=== PATIENT | male | born 1995 | race Caucasian/White ===

== ENCOUNTER 2016-11-11 12:56 | Inpatient (IN) | payer MEDICAID ==
[~2016-11-11] VITALS: Ht 185.4 cm; Wt 61.8 kg
[~2016-11-11 12:56] MED LIST: BUSP5TAB20 PO; DIVA500T52 PO; QUET200T PO
[2016-11-11 14:21] VITALS: BP 138/68
[2016-11-11] MEDS ORDERED: ZOLPIDEM TARTRATE 10 MG TABLET PO PRN (14:30)
[2016-11-11] MEDS ORDERED: LORazepam 2 MG TABLET PO PRN (14:30)
[2016-11-11 16:42] VITALS: BP 137/61
[2016-11-11] MEDS: BusPIRone HCL 5 MG TABLET PO SCH (20:03)
[2016-11-11] MEDS: QUEtiapine FUMARATE 200 MG TABLET PO SCH (20:04)
[2016-11-11] MEDS: DIVALPROEX SODIUM 500 MG ER TABLET PO SCH (20:04)
[2016-11-12 06:33] VITALS: BP 123/66
[2016-11-12] MEDS: QUEtiapine FUMARATE 200 MG TABLET PO SCH ×2 (08:25→20:32)
[2016-11-12] MEDS: DIVALPROEX SODIUM 500 MG ER TABLET PO SCH ×2 (08:25→20:33)
[2016-11-12] MEDS: BusPIRone HCL 5 MG TABLET PO SCH ×2 (08:25→20:32)
[2016-11-12 08:56] VITALS: BP 108/67
[2016-11-12 16:41] VITALS: BP 110/82
[2016-11-13 06:04] VITALS: BP 109/66
[2016-11-13 08:23] VITALS: BP 129/79
[2016-11-13] MEDS: BusPIRone HCL 5 MG TABLET PO SCH (08:57)
[2016-11-13] MEDS: QUEtiapine FUMARATE 200 MG TABLET PO SCH (08:57)
[2016-11-13] MEDS: DIVALPROEX SODIUM 500 MG ER TABLET PO SCH (08:57)
[2016-11-13] MEDS ORDERED: NICOTINE 21 MG/24 HOUR PATCH TD SCH (09:00)
== END 2016-11-13 13:30 | disposition home or self-care (01) | DRG 750 ==
LOC: B2S 14:35 → EDSTATUS 14:43
DX: F25.1 Schizoaffective disorder, depressive type (principal); R45.851 Suicidal ideations; F12.90 Cannabis use, unspecified, uncomplicated; F14.90 Cocaine use, unspecified, uncomplicated; F41.9 Anxiety disorder, unspecified; F17.200 Nicotine dependence, unspecified, uncomplicated; Z91.040 Latex allergy status; Z79.899 Other long term (current) drug therapy; Z87.898 Personal history of other specified conditions; Z71.51 Drug abuse counseling and surveillance of drug abuser
CPT/HCPCS: 87081

== ENCOUNTER 2017-03-14 19:57 | Inpatient (IN) | payer MEDICAID, OTHER ==
[~2017-03-14] VITALS: Ht 182.9 cm; Wt 64.7 kg
[2017-03-14 20:28] LABS: HEMATOCRIT 45.2 % (41-53); MEAN CORPUSCULAR HEMOGLOBIN 28.3 pg (26.0-34.0); MEAN CORPUSCULAR HGB CONC 33.2 G/dL (31.0-37.0); MEAN CORPUSCULAR VOLUME 85 fL (80-100); RED BLOOD CELL COUNT(AUTO) 5.29 MIL/uL (4.50-5.90); RED CELL DISTRIBUTION WIDTH 16.7 % (11.5-14.5)
[2017-03-14 20:29] LABS: BASOPHILS % (AUTO) 0.1 % (0.0-2.0); EOSINOPHILS % (AUTO) 2.7 % (1.0-6.0); LYMPHOCYTES # (AUTO) 2.2 K/uL (1.0-4.8); LYMPHOCYTES % (AUTO) 23.6 % (22.0-44.0); MONOCYTES % (AUTO) 10.6 % (2.0-9.0); NEUTROPHILS # (AUTO) 5.9 K/uL (1.8-7.7); PLATELET COUNT (AUTO) 293 K/uL (150-450)
[2017-03-14 20:38] LABS: AMPHET/METH SCREEN,URINE NEGATIVE (NEGATIVE); BARBITURATE SCREEN, URINE NEGATIVE (NEGATIVE); BENZODIAZEPINES SCREEN,URINE NEGATIVE (NEGATIVE); CANNABINOID SCREEN,URINE POSITIVE (NEGATIVE); COCAINE SCREEN,URINE NEGATIVE (NEGATIVE); METHADONE SCREEN, URINE NEGATIVE (NEGATIVE); OPIATE SCREEN,URINE NEGATIVE (NEGATIVE)
[2017-03-14 20:42] LABS: PHENCYCLIDINE SCREEN,URINE NEGATIVE (NEGATIVE)
[2017-03-14 20:44] LABS: ANION GAP 6 mmol/L (8-16); CALCIUM, TOTAL 8.9 mg/dL (8.8-10.5); CARBON DIOXIDE 29 mmol/L (22-29); CHLORIDE 102 mmol/L (98-107); CREATININE 0.98 mg/dL (0.60-1.30); GLOMERULAR FILTR. RATE CALC > 60 mL/min (>60); GLUCOSE,RANDOM 78 mg/dL (70-110); POTASSIUM 4.4 mmol/L (3.5-5.1); SODIUM SERUM 137 mmol/L (136-145); UREA NITROGEN, BLOOD 24 mg/dL (7-18)
[2017-03-14 20:50] LABS: ALANINE AMINOTRANSFERASE 23 U/L (12-78); ALBUMIN 3.7 g/dL (3.4-5.0); ALKALINE PHOSPHATASE 76 U/L (46-116); ASPARTATE AMINOTRANSFERASE 27 U/L (15-37); BILIRUBIN,TOTAL 0.4 mg/dL (0.1-1.0); TOTAL PROTEIN, SERUM 7.3 g/dL (6.4-8.2)
[2017-03-14] MEDS ORDERED: ACETAMINOPHEN 500 MG TABLET PO ONE (22:00)
[2017-03-14] MEDS ORDERED: LORazepam 2 MG TABLET PO ONE (22:30)
[2017-03-15] MEDS ORDERED: HALOPERIDOL 5 MG TABLET PO PRN (08:15)
[2017-03-15] MEDS ORDERED: LORazepam 2 MG TABLET PO PRN (08:15)
[2017-03-15] MEDS ORDERED: ZOLPIDEM TARTRATE 10 MG TABLET PO PRN (08:15)
[2017-03-15 09:28] VITALS: BP 118/77
[2017-03-15] MEDS ORDERED: INFLUENZA VIRUS VACCINE QVS 2017-18 (3YR+)/PF 60 MCG/0.5 ML SYRINGE IM ONE (10:00)
[2017-03-15] MEDS ORDERED: IBUPROFEN 400 MG TABLET PO PRN (19:45)
[2017-03-15] MEDS ORDERED: ACETAMINOPHEN 325 MG TABLET PO PRN (19:45)
[2017-03-15 20:05] VITALS: BP 119/65
[2017-03-15] MEDS ORDERED: MIRTAZAPINE 15 MG TABLET PO SCH (21:00)
[2017-03-16 01:35] VITALS: BP 98/57
[2017-03-16 08:14] LABS: CHOL/HDL RATIO 3.6 (4.2-7.3)
[2017-03-16] MEDS: ARIPiprazole 5 MG TABLET PO SCH (09:05)
[2017-03-16 10:33] VITALS: BP 113/69
[2017-03-16 16:00] VITALS: BP 127/68
[2017-03-16] MEDS: MIRTAZAPINE 30 MG TABLET PO SCH (21:08)
[2017-03-17 06:20] VITALS: BP 103/80
[2017-03-17] MEDS: ARIPiprazole 5 MG TABLET PO SCH (08:55)
[2017-03-17 09:01] VITALS: BP 110/58
[2017-03-17 16:00] VITALS: BP 119/63
[2017-03-17] MEDS: MIRTAZAPINE 30 MG TABLET PO SCH (20:26)
[2017-03-18 06:50] VITALS: BP 109/59
[2017-03-18 09:14] VITALS: BP 119/69
[2017-03-18] MEDS: ARIPiprazole 5 MG TABLET PO SCH (09:48)
[2017-03-18 16:36] VITALS: BP 119/82
[2017-03-18] MEDS ORDERED: MIRTAZAPINE 30 MG TABLET PO SCH (21:00)
[2017-03-19 06:54] VITALS: BP 108/65
[2017-03-19] MEDS: ARIPiprazole 5 MG TABLET PO SCH (09:08)
[2017-03-19 09:36] VITALS: BP 114/68
[2017-03-19] MEDS ORDERED: MIRT15 PO (13:12)
[2017-03-19] MEDS ORDERED: ARIP5TAB8 PO (13:12)
== END 2017-03-19 13:55 | disposition home or self-care (01) | DRG 751 ==
LOC: EMS 19:58 → AHU 03-15 08:01 → B2S 03-15 21:50
PROVIDERS: ADMIT Psychiatry & Neurology Child & Adolescent Psychiatry; ATTEND Psychiatry & Neurology Psychiatry
PROC: 3E0234Z Introduction of Serum, Toxoid and Vaccine into Muscle, Percutaneous Approach (ICD-10-PCS; principal; 2017-03-15)
DX: F33.2 Major depressive disorder, recurrent severe without psychotic features (principal); R45.851 Suicidal ideations; F15.20 Other stimulant dependence, uncomplicated; F12.90 Cannabis use, unspecified, uncomplicated; F14.90 Cocaine use, unspecified, uncomplicated; F90.9 Attention-deficit hyperactivity disorder, unspecified type; F17.210 Nicotine dependence, cigarettes, uncomplicated; F60.3 Borderline personality disorder; L70.0 Acne vulgaris; R79.89 Other specified abnormal findings of blood chemistry; Z59.0 Homelessness; Z91.040 Latex allergy status; Z79.899 Other long term (current) drug therapy; Z23 Encounter for immunization
CPT/HCPCS: 90471; 99285; G0480

== ENCOUNTER 2017-04-24 08:20 | Inpatient (IN) | payer MEDICAID, OTHER ==
[~2017-04-24] VITALS: Ht 185.4 cm; Wt 64.2 kg
[~2017-04-24 08:20] MED LIST changes: +ARIP5TAB8 PO; -BUSP5TAB20 PO; -DIVA500T52 PO; +MIRT15 PO; -QUET200T PO
[2017-04-24 09:18] LABS: BASOPHILS % (AUTO) 0.7 % (0.0-2.0); EOSINOPHILS % (AUTO) 1.3 % (1.0-6.0); HEMATOCRIT 44.9 % (41-53); HEMOGLOBIN 14.9 g/dL (13.5-17.5); LYMPHOCYTES # (AUTO) 1.4 K/uL (1.0-4.8); LYMPHOCYTES % (AUTO) 11.7 % (22.0-44.0); MEAN CORPUSCULAR HEMOGLOBIN 27.5 pg (26.0-34.0); MEAN CORPUSCULAR HGB CONC 33.3 G/dL (31.0-37.0); MEAN CORPUSCULAR VOLUME 83 fL (80-100); MONOCYTES # (AUTO) 1.1 K/uL (0.1-1.0); MONOCYTES % (AUTO) 9.3 % (2.0-9.0); NEUTROPHILS # (AUTO) 8.9 K/uL (1.8-7.7); PLATELET COUNT (AUTO) 240 K/uL (150-450); RED BLOOD CELL COUNT(AUTO) 5.43 MIL/uL (4.50-5.90); RED CELL DISTRIBUTION WIDTH 16.5 % (11.5-14.5)
[2017-04-24 09:33] LABS: ANION GAP 7 mmol/L (8-16); CALCIUM, TOTAL 8.9 mg/dL (8.8-10.5); CARBON DIOXIDE 29 mmol/L (22-29); CHLORIDE 106 mmol/L (98-107); CREATININE 0.76 mg/dL (0.60-1.30); GLOMERULAR FILTR. RATE CALC > 60 mL/min (>60); GLUCOSE,RANDOM 79 mg/dL (70-110); POTASSIUM 4.1 mmol/L (3.5-5.1); SODIUM SERUM 142 mmol/L (136-145); UREA NITROGEN, BLOOD 8 mg/dL (7-18)
[2017-04-24 09:37] LABS: ALANINE AMINOTRANSFERASE 26 U/L (12-78); ALBUMIN 3.9 g/dL (3.4-5.0); ALKALINE PHOSPHATASE 77 U/L (46-116); ASPARTATE AMINOTRANSFERASE 25 U/L (15-37); BILIRUBIN,TOTAL 0.4 mg/dL (0.1-1.0)
[2017-04-24 09:51] LABS: AMPHET/METH SCREEN,URINE NEGATIVE (NEGATIVE); BARBITURATE SCREEN, URINE NEGATIVE (NEGATIVE); BENZODIAZEPINES SCREEN,URINE NEGATIVE (NEGATIVE); CANNABINOID SCREEN,URINE POSITIVE (NEGATIVE); COCAINE SCREEN,URINE NEGATIVE (NEGATIVE); METHADONE SCREEN, URINE NEGATIVE (NEGATIVE); OPIATE SCREEN,URINE NEGATIVE (NEGATIVE); PHENCYCLIDINE SCREEN,URINE NEGATIVE (NEGATIVE)
[2017-04-24] MEDS ORDERED: HALOPERIDOL 5 MG TABLET PO PRN (11:30)
[2017-04-24] MEDS ORDERED: ZOLPIDEM TARTRATE 10 MG TABLET PO PRN (11:30)
[2017-04-24 13:45] VITALS: BP 117/72
[2017-04-24] MEDS: LORazepam 2 MG TABLET PO PRN (13:54)
[2017-04-24] MEDS: MIRTAZAPINE 15 MG TABLET PO SCH (21:00)
[2017-04-25 00:09] VITALS: BP 110/62
[2017-04-25] MEDS: LORazepam 2 MG TABLET PO PRN (00:10)
[2017-04-25] MEDS ORDERED: -PHARMACY VACCINE NOTE- MISC ONE (00:15)
[2017-04-25 08:31] VITALS: BP 118/78
[2017-04-25] MEDS: ARIPiprazole 5 MG TABLET PO SCH (08:43)
[2017-04-25 16:46] VITALS: BP 110/67
[2017-04-25] MEDS: MIRTAZAPINE 15 MG TABLET PO SCH (20:22)
[2017-04-26 08:12] VITALS: BP 109/64
[2017-04-26] MEDS: ARIPiprazole 5 MG TABLET PO SCH (08:20)
[2017-04-26 18:25] VITALS: BP 110/60
[2017-04-26] MEDS: MIRTAZAPINE 15 MG TABLET PO SCH (20:54)
[2017-04-27 07:14] VITALS: BP 119/60
[2017-04-27 08:24] VITALS: BP 116/69
[2017-04-27] MEDS: ARIPiprazole 5 MG TABLET PO SCH (08:47)
[2017-04-27] MEDS: NICOTINE 21 MG/24 HOUR PATCH TD SCH (12:59)
[2017-04-27] MEDS: LORazepam 2 MG TABLET PO PRN (14:42)
[2017-04-27 16:10] VITALS: BP 115/61
[2017-04-27] MEDS: MIRTAZAPINE 15 MG TABLET PO SCH (20:34)
[2017-04-28 07:09] VITALS: BP 110/68
[2017-04-28 08:31] VITALS: BP 118/78
[2017-04-28] MEDS: ARIPiprazole 5 MG TABLET PO SCH (08:44)
[2017-04-28] MEDS: NICOTINE 21 MG/24 HOUR PATCH TD SCH (08:47)
[2017-04-28] MEDS: LORazepam 2 MG TABLET PO PRN (16:28)
[2017-04-28 16:37] VITALS: BP 123/65
[2017-04-28] MEDS ORDERED: ACETAMINOPHEN 325 MG TABLET PO PRN (19:30)
[2017-04-28] MEDS ORDERED: IBUPROFEN 600 MG TABLET PO PRN (19:30)
[2017-04-28 19:39] VITALS: BP 125/65
[2017-04-28] MEDS: MIRTAZAPINE 15 MG TABLET PO SCH (20:21)
[2017-04-28] MEDS ORDERED: ONDANSETRON HCL 4 MG TABLET PO PRN (20:45)
[2017-04-29] MEDS: ARIPiprazole 5 MG TABLET PO SCH (08:16)
[2017-04-29] MEDS: NICOTINE 21 MG/24 HOUR PATCH TD SCH (08:17)
[2017-04-29 08:47] VITALS: BP 113/66
== END 2017-04-29 13:23 | disposition home or self-care (01) | DRG 751 ==
LOC: EMS 08:21 → AHU 13:32 → B2S 16:15
PROVIDERS: ADMIT Psychiatry & Neurology Psychiatry; ATTEND Psychiatry & Neurology Child & Adolescent Psychiatry
DX: F33.2 Major depressive disorder, recurrent severe without psychotic features (principal); R45.851 Suicidal ideations; D72.829 Elevated white blood cell count, unspecified; F90.9 Attention-deficit hyperactivity disorder, unspecified type; F17.210 Nicotine dependence, cigarettes, uncomplicated; F15.90 Other stimulant use, unspecified, uncomplicated; F41.9 Anxiety disorder, unspecified; F14.10 Cocaine abuse, uncomplicated; F12.10 Cannabis abuse, uncomplicated; L70.0 Acne vulgaris; Z79.899 Other long term (current) drug therapy; Z91.040 Latex allergy status
CPT/HCPCS: 99285; G0480

== ENCOUNTER 2017-05-25 22:06 | Inpatient (IN) | payer MEDICAID, OTHER ==
[~2017-05-25] VITALS: Ht 185.4 cm; Wt 63.5 kg
[2017-05-25 23:41] LABS: BASOPHILS % (AUTO) 0.8 % (0.0-2.0); EOSINOPHILS % (AUTO) 2.9 % (1.0-6.0); HEMATOCRIT 45.6 % (41-53); HEMOGLOBIN 15.5 g/dL (13.5-17.5); LYMPHOCYTES # (AUTO) 2.5 K/uL (1.0-4.8); LYMPHOCYTES % (AUTO) 24.2 % (22.0-44.0); MEAN CORPUSCULAR HEMOGLOBIN 28.5 pg (26.0-34.0); MEAN CORPUSCULAR HGB CONC 33.9 G/dL (31.0-37.0); MEAN CORPUSCULAR VOLUME 84 fL (80-100); MONOCYTES # (AUTO) 0.9 K/uL (0.1-1.0); MONOCYTES % (AUTO) 8.3 % (2.0-9.0); NEUTROPHILS # (AUTO) 6.7 K/uL (1.8-7.7); NEUTROPHILS % (AUTO) 63.8 % (40.0-70.0); PLATELET COUNT (AUTO) 229 K/uL (150-450); RED BLOOD CELL COUNT(AUTO) 5.44 MIL/uL (4.50-5.90); RED CELL DISTRIBUTION WIDTH 16.7 % (11.5-14.5)
[2017-05-26 00:03] LABS: ANION GAP 7 mmol/L (8-16); CALCIUM, TOTAL 8.7 mg/dL (8.8-10.5); CARBON DIOXIDE 29 mmol/L (22-29); CHLORIDE 105 mmol/L (98-107); CREATININE 0.88 mg/dL (0.60-1.30); GLOMERULAR FILTR. RATE CALC > 60 mL/min (>60); GLUCOSE,RANDOM 92 mg/dL (70-110); POTASSIUM 3.7 mmol/L (3.5-5.1); SODIUM SERUM 141 mmol/L (136-145); UREA NITROGEN, BLOOD 17 mg/dL (7-18)
[2017-05-26 00:05] LABS: ALANINE AMINOTRANSFERASE 25 U/L (12-78); ALBUMIN 3.7 g/dL (3.4-5.0); ALKALINE PHOSPHATASE 62 U/L (46-116); ASPARTATE AMINOTRANSFERASE 23 U/L (15-37); BILIRUBIN,TOTAL 0.4 mg/dL (0.1-1.0); TOTAL PROTEIN, SERUM 6.7 g/dL (6.4-8.2)
[2017-05-26] MEDS ORDERED: ZOLPIDEM TARTRATE 10 MG TABLET PO PRN (08:30)
[2017-05-26] MEDS ORDERED: HALOPERIDOL 5 MG TABLET PO PRN (08:30)
[2017-05-26 11:08] VITALS: BP 105/55
[2017-05-26] MEDS: MIRTAZAPINE 15 MG TABLET PO SCH (21:00)
[2017-05-27 00:12] VITALS: BP 112/64
[2017-05-27] MEDS: LORazepam 2 MG TABLET PO PRN (00:24)
[2017-05-27 08:00] VITALS: BP 109/67
[2017-05-27] MEDS: ARIPiprazole 5 MG TABLET PO SCH (09:11)
[2017-05-27 16:09] VITALS: BP 120/80
[2017-05-27] MEDS: MIRTAZAPINE 15 MG TABLET PO SCH (20:42)
[2017-05-28 06:04] VITALS: BP 105/58
[2017-05-28] MEDS: ARIPiprazole 5 MG TABLET PO SCH (08:22)
[2017-05-28 08:47] VITALS: BP 111/75
[2017-05-28 16:46] VITALS: BP 102/64
[2017-05-28] MEDS: MIRTAZAPINE 15 MG TABLET PO SCH (20:40)
[2017-05-29 06:38] VITALS: BP 106/69
[2017-05-29] MEDS: ARIPiprazole 5 MG TABLET PO SCH (09:02)
[2017-05-29 11:18] VITALS: BP 121/70
[2017-05-29] MEDS: LORazepam 2 MG TABLET PO PRN ×2 (12:34→18:33)
[2017-05-29 16:17] VITALS: BP 115/65
[2017-05-29] MEDS ORDERED: LORazepam 2 MG/ML VIAL ONE (19:15)
[2017-05-29] MEDS ORDERED: DiphenhydrAMINE HCL 50 MG/ML VIAL ONE (19:15)
[2017-05-29] MEDS ORDERED: HALOPERIDOL LACTATE 5 MG/ML VIAL IM ONE (19:15)
[2017-05-29] MEDS ORDERED: LORazepam 2 MG/ML VIAL IM ONE (19:15)
[2017-05-29] MEDS ORDERED: HALOPERIDOL LACTATE 5 MG/ML VIAL ONE (19:15)
[2017-05-29] MEDS ORDERED: DiphenhydrAMINE HCL 50 MG/ML VIAL IM ONE (19:15)
[2017-05-29 20:31] VITALS: BP 110/66
[2017-05-29] MEDS: MIRTAZAPINE 15 MG TABLET PO SCH (21:00)
[2017-05-30 08:35] VITALS: BP 123/69
[2017-05-30] MEDS: LORazepam 2 MG TABLET PO PRN (08:43)
[2017-05-30] MEDS: ARIPiprazole 5 MG TABLET PO SCH (08:43)
[2017-05-30] MEDS ORDERED: DiphenhydrAMINE HCL 50 MG/ML VIAL ONE (09:28)
[2017-05-30] MEDS ORDERED: HALOPERIDOL LACTATE 5 MG/ML VIAL ONE (09:28)
[2017-05-30] MEDS ORDERED: LORazepam 2 MG/ML VIAL ONE (09:28)
[2017-05-30] MEDS ORDERED: HALOPERIDOL LACTATE 5 MG/ML VIAL IM ONE (09:45)
[2017-05-30] MEDS ORDERED: DiphenhydrAMINE HCL 50 MG/ML VIAL IM ONE (09:45)
[2017-05-30] MEDS ORDERED: LORazepam 2 MG/ML VIAL IM ONE (09:45)
[2017-05-30 16:15] VITALS: BP 100/62
[2017-05-30] MEDS: MIRTAZAPINE 15 MG TABLET PO SCH (20:06)
[2017-05-31 03:00] VITALS: BP 114/67
[2017-05-31 08:03] VITALS: BP 108/62
[2017-05-31] MEDS: ARIPiprazole 5 MG TABLET PO SCH (08:06)
== END 2017-05-31 12:17 | disposition home or self-care (01) | DRG 751 ==
LOC: EMS 22:06 → AHU 05-26 10:15 → B2S 05-26 22:37 → B3A 05-30 10:16
PROVIDERS: ADMIT Psychiatry & Neurology Psychiatry; ATTEND Psychiatry & Neurology Child & Adolescent Psychiatry
DX: F33.2 Major depressive disorder, recurrent severe without psychotic features (principal); R45.851 Suicidal ideations; F15.20 Other stimulant dependence, uncomplicated; F60.3 Borderline personality disorder; F17.200 Nicotine dependence, unspecified, uncomplicated; F12.90 Cannabis use, unspecified, uncomplicated; F90.9 Attention-deficit hyperactivity disorder, unspecified type; F41.9 Anxiety disorder, unspecified; R45.87 Impulsiveness; D72.829 Elevated white blood cell count, unspecified; L70.0 Acne vulgaris; Z79.899 Other long term (current) drug therapy; Z91.040 Latex allergy status; Z59.0 Homelessness; Z91.5 Personal history of self-harm
CPT/HCPCS: 87081; G0480; J1200; J1630; J2060

== ENCOUNTER 2017-06-05 15:37 | Inpatient (IN) | payer MEDICAID, OTHER ==
[~2017-06-05] VITALS: Ht 185.4 cm; Wt 63.5 kg
[2017-06-05 15:59] LABS: BASOPHILS % (AUTO) 0.9 % (0.0-2.0); EOSINOPHILS % (AUTO) 3.3 % (1.0-6.0); HEMATOCRIT 45.7 % (41-53); HEMOGLOBIN 15.3 g/dL (13.5-17.5); LYMPHOCYTES # (AUTO) 2.1 K/uL (1.0-4.8); LYMPHOCYTES % (AUTO) 21.1 % (22.0-44.0); MEAN CORPUSCULAR HEMOGLOBIN 28.2 pg (26.0-34.0); MEAN CORPUSCULAR HGB CONC 33.5 G/dL (31.0-37.0); MEAN CORPUSCULAR VOLUME 84 fL (80-100); MONOCYTES % (AUTO) 9.9 % (2.0-9.0); NEUTROPHILS # (AUTO) 6.3 K/uL (1.8-7.7); NEUTROPHILS % (AUTO) 64.8 % (40.0-70.0); PLATELET COUNT (AUTO) 270 K/uL (150-450); RED BLOOD CELL COUNT(AUTO) 5.43 MIL/uL (4.50-5.90); RED CELL DISTRIBUTION WIDTH 16.3 % (11.5-14.5)
[2017-06-05 16:08] LABS: ANION GAP 8 mmol/L (8-16); CALCIUM, TOTAL 8.8 mg/dL (8.8-10.5); CARBON DIOXIDE 27 mmol/L (22-29); CHLORIDE 106 mmol/L (98-107); GLOMERULAR FILTR. RATE CALC > 60 mL/min (>60); GLUCOSE,RANDOM 114 mg/dL (70-110); POTASSIUM 3.9 mmol/L (3.5-5.1); SODIUM SERUM 141 mmol/L (136-145); UREA NITROGEN, BLOOD 17 mg/dL (7-18)
[2017-06-05 16:14] LABS: ALANINE AMINOTRANSFERASE 28 U/L (12-78); ALBUMIN 3.9 g/dL (3.4-5.0); ALKALINE PHOSPHATASE 69 U/L (46-116); ASPARTATE AMINOTRANSFERASE 24 U/L (15-37); BILIRUBIN,TOTAL 0.3 mg/dL (0.1-1.0); TOTAL PROTEIN, SERUM 7.1 g/dL (6.4-8.2)
[2017-06-05] MEDS ORDERED: HALOPERIDOL LACTATE 5 MG/ML VIAL IM ONE (19:30)
[2017-06-05] MEDS ORDERED: DiphenhydrAMINE HCL 50 MG/ML VIAL IM ONE (19:30)
[2017-06-05] MEDS ORDERED: LORazepam 2 MG/ML VIAL IM ONE (19:30)
[2017-06-05] MEDS ORDERED: ZOLPIDEM TARTRATE 10 MG TABLET PO PRN (19:30)
[2017-06-06 00:44] VITALS: BP 108/64
[2017-06-06 08:22] VITALS: BP 96/66
[2017-06-06] MEDS: ARIPiprazole 10 MG TABLET PO SCH (11:39)
[2017-06-06] MEDS: LORazepam 2 MG TABLET PO PRN (15:08)
[2017-06-06] MEDS: HALOPERIDOL 5 MG TABLET PO PRN (16:27)
[2017-06-06 18:38] VITALS: BP 100/55
[2017-06-06] MEDS: MIRTAZAPINE 15 MG TABLET PO SCH (20:47)
[2017-06-07 08:12] VITALS: BP 90/56
[2017-06-07] MEDS: ARIPiprazole 10 MG TABLET PO SCH (08:21)
[2017-06-07] MEDS: MIRTAZAPINE 15 MG TABLET PO SCH (20:16)
[2017-06-08] MEDS: ARIPiprazole 10 MG TABLET PO SCH (08:54)
[2017-06-08] MEDS: LORazepam 2 MG TABLET PO PRN (17:55)
[2017-06-08] MEDS: HALOPERIDOL 5 MG TABLET PO PRN (17:55)
[2017-06-08 19:43] VITALS: BP 109/60
[2017-06-08] MEDS: MIRTAZAPINE 15 MG TABLET PO SCH (21:30)
[2017-06-09 08:16] VITALS: BP 114/65
[2017-06-09] MEDS: ARIPiprazole 10 MG TABLET PO SCH (09:06)
[2017-06-09] MEDS: LORazepam 2 MG TABLET PO PRN (10:24)
[2017-06-09] MEDS ORDERED: ARIP10TA8 PO (10:24)
[2017-06-09] MEDS: HALOPERIDOL 5 MG TABLET PO PRN ×2 (10:25→10:27)
== END 2017-06-09 17:00 | disposition home or self-care (01) | DRG 750 ==
LOC: EMS 15:38 → 3EC 21:53
PROVIDERS: ADMIT Psychiatry & Neurology Child & Adolescent Psychiatry; ATTEND Psychiatry & Neurology Psychiatry
DX: F25.9 Schizoaffective disorder, unspecified (principal); R45.851 Suicidal ideations; Z59.0 Homelessness; F41.9 Anxiety disorder, unspecified; F90.9 Attention-deficit hyperactivity disorder, unspecified type; F12.10 Cannabis abuse, uncomplicated; Z91.040 Latex allergy status; Z91.5 Personal history of self-harm; Z87.891 Personal history of nicotine dependence
CPT/HCPCS: 87081; 99285; G0480

== ENCOUNTER 2017-11-25 20:50 | Emergency (ER) | payer MEDICAID, OTHER ==
[~2017-11-25] VITALS: Ht 185.4 cm; Wt 63.2 kg
[2017-11-25 18:10] VITALS: BP 120/68
[~2017-11-25 20:50] MED LIST changes: +ARIP10TA8 PO; -ARIP5TAB8 PO; +HALOPERIDOL 5 MG TABLET PO PRN; +LORazepam 2 MG TABLET PO PRN; +ZOLPIDEM TARTRATE 10 MG TABLET PO PRN
[2017-11-25 22:20] LABS: APPEARANCE,URINE CLEAR (CLEAR); BILIRUBIN,URINE NEGATIVE (NEGATIVE); GLUCOSE, URINE (UA) NEGATIVE (NEGATIVE); KETONES,URINE TRACE mg/dL (NEGATIVE); LEUKOCYTE ESTERASE ,URINE NEGATIVE (NEGATIVE); NITRATE,URINE NEGATIVE (NEGATIVE); OCCULT BLOOD,URINE NEGATIVE (NEGATIVE); PROTEIN,URINE NEGATIVE (NEGATIVE)
[2017-11-25 22:25] LABS: AMPHET/METH SCREEN,URINE NEGATIVE (NEGATIVE); BARBITURATE SCREEN, URINE NEGATIVE (NEGATIVE); BENZODIAZEPINES SCREEN,URINE NEGATIVE (NEGATIVE); CANNABINOID SCREEN,URINE POSITIVE (NEGATIVE); COCAINE SCREEN,URINE NEGATIVE (NEGATIVE); METHADONE SCREEN, URINE NEGATIVE (NEGATIVE); OPIATE SCREEN,URINE NEGATIVE (NEGATIVE)
[2017-11-25 22:28] LABS: PHENCYCLIDINE SCREEN,URINE NEGATIVE (NEGATIVE)
[2017-11-26 08:31] LABS: HEMOGLOBIN A1C 4.8 % (4.5-6.2)
[2017-11-26 08:39] LABS: BASOPHILS % (AUTO) 0.4 % (0.0-2.0); EOSINOPHILS % (AUTO) 1.2 % (1.0-6.0); HEMATOCRIT 49.1 % (41-53); HEMOGLOBIN 16.9 g/dL (13.5-17.5); LYMPHOCYTES # (AUTO) 1.4 K/uL (1.0-4.8); MEAN CORPUSCULAR HEMOGLOBIN 29.7 pg (26.0-34.0); MEAN CORPUSCULAR HGB CONC 34.5 G/dL (31.0-37.0); MEAN CORPUSCULAR VOLUME 86 fL (80-100); MONOCYTES # (AUTO) 0.7 K/uL (0.1-1.0); MONOCYTES % (AUTO) 7.4 % (2.0-9.0); NEUTROPHILS # (AUTO) 7.8 K/uL (1.8-7.7); PLATELET COUNT (AUTO) 220 K/uL (150-450); RED CELL DISTRIBUTION WIDTH 15.5 % (11.5-14.5)
[2017-11-26 08:43] LABS: ALANINE AMINOTRANSFERASE 22 U/L (12-78); ALBUMIN 3.9 g/dL (3.4-5.0); ALKALINE PHOSPHATASE 66 U/L (46-116); ANION GAP 7 mmol/L (8-16); ASPARTATE AMINOTRANSFERASE 26 U/L (15-37); BILIRUBIN,TOTAL 0.6 mg/dL (0.1-1.0); CALCIUM, TOTAL 8.9 mg/dL (8.8-10.5); CARBON DIOXIDE 27 mmol/L (22-29); CHLORIDE 106 mmol/L (98-107); CHOLESTEROL 133 mg/dL (131-200); CREATININE 0.97 mg/dL (0.60-1.30); GLOMERULAR FILTR. RATE CALC > 60 mL/min (>60); GLUCOSE,RANDOM 86 mg/dL (70-110); HDL CHOLESTEROL 45 mg/dL (40-60); LDL CHOL (CALC.) 78 mg/dL (0-130); POTASSIUM 4.1 mmol/L (3.5-5.1); SODIUM SERUM 140 mmol/L (136-145); THYROID STIMULATING HORMONE 0.47 uIU/mL (0.36-3.74); TOTAL PROTEIN, SERUM 6.9 g/dL (6.4-8.2); TRIGLYCERIDES 48 mg/dL (15-150); UREA NITROGEN, BLOOD 10 mg/dL (7-18)
[2017-11-26 11:30] VITALS: BP 117/61
== END 2017-11-26 12:51 | disposition home or self-care (01) ==
LOC: EMS 20:55
DX: S20.212A Contusion of left front wall of thorax, initial encounter (principal); F31.9 Bipolar disorder, unspecified; F41.9 Anxiety disorder, unspecified; F17.210 Nicotine dependence, cigarettes, uncomplicated; F12.90 Cannabis use, unspecified, uncomplicated; F19.90 Other psychoactive substance use, unspecified, uncomplicated; Z59.0 Homelessness; Z91.040 Latex allergy status; Z79.899 Other long term (current) drug therapy; Y04.0XXA Assault by unarmed brawl or fight, initial encounter; Y93.89 Activity, other specified; Y92.89 Other specified places as the place of occurrence of the external cause; Y99.8 Other external cause status
CPT/HCPCS: 83036; 84439; 84443; 99285

== ENCOUNTER 2024-07-02 20:27 | Inpatient (IN) | payer MEDICAID ==
[~2024-07-02] VITALS: Ht 185.4 cm; Wt 62.6 kg
[~2024-07-02 20:27] MED LIST changes: +ARIP10TA38 PO; -ARIP10TA8 PO; +DIVA-112 PO; -HALOPERIDOL 5 MG TABLET PO PRN; -LORazepam 2 MG TABLET PO PRN; +MIRT-89 PO; -MIRT15 PO; -ZOLPIDEM TARTRATE 10 MG TABLET PO PRN
[2024-07-02 20:42] LABS: COVID AG,FIA SOURCE NASAL SWAB
[2024-07-02 20:44] LABS: BASOPHILS % (AUTO) 0.4 % (0.0-2.0); EOSINOPHILS % (AUTO) 0.5 % (1.0-6.0); HEMATOCRIT 46.8 % (41-53); HEMOGLOBIN 15.7 g/dL (13.5-17.5); LYMPHOCYTES # (AUTO) 2.2 K/uL (1.0-4.8); LYMPHOCYTES % (AUTO) 25.2 % (22.0-44.0); MEAN CORPUSCULAR HEMOGLOBIN 28.8 pg (26.0-34.0); MEAN CORPUSCULAR HGB CONC 33.5 G/dL (31.0-37.0); MEAN CORPUSCULAR VOLUME 86 fL (80-100); MONOCYTES # (AUTO) 0.9 K/uL (0.1-1.0); MONOCYTES % (AUTO) 10.8 % (2.0-9.0); NEUTROPHILS # (AUTO) 5.5 K/uL (1.8-7.7); NEUTROPHILS % (AUTO) 63.1 % (40.0-70.0); PLATELET COUNT (AUTO) 208 K/uL (150-450); RED BLOOD CELL COUNT(AUTO) 5.45 MIL/uL (4.50-5.90); RED CELL DISTRIBUTION WIDTH 15.7 % (11.5-14.5); WHITE BLOOD COUNT (AUTO) 8.8 K/uL (4.5-11.0)
[2024-07-02 20:51] LABS: APPEARANCE,URINE CLEAR (CLEAR); BILIRUBIN,URINE NEGATIVE (NEGATIVE); COLOR,URINE LIGHT YELLOW (YELLOW); GLUCOSE, URINE (UA) NEGATIVE (NEGATIVE); KETONES,URINE NEGATIVE (NEGATIVE); LEUKOCYTE ESTERASE ,URINE TRACE (NEGATIVE); NITRATE,URINE NEGATIVE (NEGATIVE); OCCULT BLOOD,URINE NEGATIVE (NEGATIVE); PH,URINE 6.5 (5.0-8.0); PH,URINE DRUG SCREEN 6.5 (5.0-8.0); PROTEIN,URINE NEGATIVE (NEGATIVE); SPECIFIC GRAVITIY, URINE 1.013 (1.003-1.030); UROBILINOGEN,URINE <=1.0 mg/dL (<=1.0)
[2024-07-02 20:58] LABS: ANION GAP 9 mmol/L (8-16); CALCIUM, TOTAL 8.7 mg/dL (8.8-10.5); CARBON DIOXIDE 31 mmol/L (22-29); CHLORIDE 103 mmol/L (98-107); CREATININE 0.92 mg/dL (0.60-1.30); GLOMERULAR FILTR. RATE CALC > 60 mL/min (>60); GLUCOSE,RANDOM 73 mg/dL (70-110); POTASSIUM 3.2 mmol/L (3.5-5.1); SODIUM SERUM 143 mmol/L (136-145); UREA NITROGEN, BLOOD 9 mg/dL (7-18)
[2024-07-02 21:00] LABS: ALCOHOL, URINE DRUG SCREEN NEGATIVE (NEGATIVE); AMPHET/METH SCREEN,URINE NEGATIVE (NEGATIVE); BARBITURATE SCREEN, URINE NEGATIVE (NEGATIVE); BENZODIAZEPINES SCREEN,URINE NEGATIVE (NEGATIVE); CANNABINOID SCREEN,URINE POSITIVE (NEGATIVE); COCAINE SCREEN,URINE NEGATIVE (NEGATIVE); METHADONE SCREEN, URINE NEGATIVE (NEGATIVE); OPIATE SCREEN,URINE NEGATIVE (NEGATIVE); PHENCYCLIDINE SCREEN,URINE NEGATIVE (NEGATIVE)
[2024-07-02 21:03] LABS: RBC,URINE 0-2 /HPF (0-2)
[2024-07-02 21:04] LABS: BACTERIA,URINE Rare /HPF (None Seen); SQUAMOUS EPITHELIAL CELL,UR Rare /LPF (None Seen)
[2024-07-02 21:05] LABS: SARS-COV2 (COVID) ANTIGEN,FIA Negative (Negative)
[2024-07-03 09:54] VITALS: O2SAT 99
[2024-07-03 13:03] VITALS: BP 134/67; PULSE 62; RESP 18; TEMP 97.3; O2SAT 100
[2024-07-03] MEDS ORDERED: ONDANSETRON 4 MG TABLET PO PRN (17:15)
[2024-07-03] MEDS ORDERED: DOCUSATE SODIUM 100 MG CAPSULE PO PRN (17:15)
[2024-07-03] MEDS ORDERED: ALBUTEROL SULFATE HFA 90 MCG/PUFF 8 GM INHALER IH PRN (17:15)
[2024-07-03] MEDS ORDERED: BENZOCAINE/MENTHOL [CEPACOL] LOZENGE PO PRN (17:15)
[2024-07-03] MEDS ORDERED: MAGNESIUM HYDROXIDE SUSPENSION 30 ML UDCUP PO PRN (17:15)
[2024-07-03] MEDS ORDERED: IBUPROFEN 600 MG TABLET PO PRN (17:15)
[2024-07-03] MEDS ORDERED: PETROLATUM,WHITE 28 GM JELLY TP PRN (17:15)
[2024-07-03] MEDS ORDERED: BACITRACIN 28 GM OINTMENT TP PRN (17:15)
[2024-07-03] MEDS ORDERED: CloNIDine HCL 0.1 MG TABLET PO PRN (17:15)
[2024-07-03] MEDS ORDERED: LOPERAMIDE HCL 2 MG CAPSULE PO PRN (17:15)
[2024-07-03] MEDS ORDERED: MAG HYDROX/ALUMINUM HYD/SIMETH ES 30 ML SUSPENSION UDCUP PO PRN (17:15)
[2024-07-03] MEDS ORDERED: OMEPRAZOLE 20 MG CAPSULE PO PRN (17:15)
[2024-07-03] MEDS ORDERED: ACETAMINOPHEN 325 MG TABLET PO PRN (17:15)
[2024-07-03] MEDS: POTASSIUM CHLORIDE 20 MEQ ER TABLET PO ONE (17:50)
[2024-07-03 20:42] VITALS: BP 111/75; PULSE 72; RESP 16; TEMP 97.6; O2SAT 100
[2024-07-04 09:24] LABS: BASOPHILS % (AUTO) 0.2 % (0.0-2.0); EOSINOPHILS % (AUTO) 1.8 % (1.0-6.0); HEMATOCRIT 50.1 % (41-53); HEMOGLOBIN 16.5 g/dL (13.5-17.5); LYMPHOCYTES # (AUTO) 2.2 K/uL (1.0-4.8); LYMPHOCYTES % (AUTO) 32.3 % (22.0-44.0); MEAN CORPUSCULAR HEMOGLOBIN 28.2 pg (26.0-34.0); MEAN CORPUSCULAR HGB CONC 32.9 G/dL (31.0-37.0); MEAN CORPUSCULAR VOLUME 86 fL (80-100); MONOCYTES # (AUTO) 0.7 K/uL (0.1-1.0); MONOCYTES % (AUTO) 10.6 % (2.0-9.0); NEUTROPHILS # (AUTO) 3.7 K/uL (1.8-7.7); NEUTROPHILS % (AUTO) 55.1 % (40.0-70.0); PLATELET COUNT (AUTO) 221 K/uL (150-450); RED BLOOD CELL COUNT(AUTO) 5.85 MIL/uL (4.50-5.90); RED CELL DISTRIBUTION WIDTH 15.4 % (11.5-14.5); WHITE BLOOD COUNT (AUTO) 6.7 K/uL (4.5-11.0)
[2024-07-04 09:28] VITALS: BP 110/75; PULSE 72; RESP 16; TEMP 97.3; O2SAT 97
[2024-07-04 09:55] LABS: ALANINE AMINOTRANSFERASE 17 U/L (12-78); ALBUMIN 3.8 g/dL (3.4-5.0); ALKALINE PHOSPHATASE 67 U/L (46-116); ANION GAP 7 mmol/L (8-16); ASPARTATE AMINOTRANSFERASE 18 U/L (15-37); BILIRUBIN,TOTAL 0.5 mg/dL (0.1-1.0); CALCIUM, TOTAL 8.8 mg/dL (8.8-10.5); CARBON DIOXIDE 28 mmol/L (22-29); CHLORIDE 102 mmol/L (98-107); CHOL/HDL RATIO 3.9 (4.2-7.3); CHOLESTEROL 151 mg/dL (131-200); GLOMERULAR FILTR. RATE CALC > 60 mL/min (>60); GLUCOSE,RANDOM 73 mg/dL (70-110); HDL CHOLESTEROL 39 mg/dL (40-60); LDL CHOL (CALC.) 93 mg/dL (0-130); POTASSIUM 4.4 mmol/L (3.5-5.1); SODIUM SERUM 137 mmol/L (136-145); TOTAL PROTEIN, SERUM 7.6 g/dL (6.4-8.2); TRIGLYCERIDES 97 mg/dL (15-150); UREA NITROGEN, BLOOD 10 mg/dL (7-18)
[2024-07-04] MEDS: DIVALPROEX SODIUM 500 MG DR TABLET PO SCH (20:38)
[2024-07-04] MEDS: ARIPiprazole 10 MG TABLET PO SCH (20:38)
[2024-07-04] MEDS: MIRTAZAPINE 15 MG TABLET PO SCH (20:38)
[2024-07-04 20:50] VITALS: BP 119/72; PULSE 71; RESP 18; TEMP 97.7; O2SAT 98
[2024-07-05 08:54] VITALS: BP 111/81; PULSE 88; RESP 17; TEMP 97.8; O2SAT 99
[2024-07-05] MEDS: LORazepam 2 MG TABLET PO PRN (16:14)
[2024-07-05] MEDS: haloperidoL 5 MG TABLET PO PRN (16:14)
[2024-07-05 20:39] VITALS: BP 121/80; PULSE 80; RESP 18; TEMP 96.4; O2SAT 97
[2024-07-05] MEDS: ZOLPIDEM TARTRATE 10 MG TABLET PO PRN (21:42)
[2024-07-06 09:12] VITALS: BP 118/76; PULSE 73; RESP 16; TEMP 98.4; O2SAT 96
[2024-07-06 17:17] VITALS: BP 104/79; PULSE 100; RESP 19; TEMP 97.7; O2SAT 97
[2024-07-06 20:00] VITALS: BP 104/79; PULSE 100; RESP 19; TEMP 97.7; O2SAT 97
[2024-07-07 08:38] VITALS: BP 121/77; PULSE 74; RESP 16; TEMP 97.5; O2SAT 98
[2024-07-07] MEDS ORDERED: ARIP10TA38 PO (16:42)
[2024-07-07] MEDS ORDERED: DIVA-112 PO (16:44)
[2024-07-07] MEDS ORDERED: MIRT-89 PO (16:45)
== END 2024-07-07 18:47 | disposition home or self-care (01) | DRG 750 ==
LOC: EMS 20:27 → B2S 07-03 10:22
PROVIDERS: ADMIT Psychiatry & Neurology Psychiatry; ATTEND Psychiatry & Neurology Psychiatry
PROC: GZHZZZZ Group Psychotherapy (ICD-10-PCS; principal; 2024-07-04)
PROC: GZ52ZZZ Individual Psychotherapy, Cognitive (ICD-10-PCS; 2024-07-04)
PROC: GZ56ZZZ Individual Psychotherapy, Supportive (ICD-10-PCS; 2024-07-04)
DX: F25.1 Schizoaffective disorder, depressive type (principal); R45.851 Suicidal ideations; Z91.148 Patient's other noncompliance with medication regimen for other reason; E87.6 Hypokalemia; Z20.822 Contact with and (suspected) exposure to COVID-19; Z79.899 Other long term (current) drug therapy; F12.10 Cannabis abuse, uncomplicated; F15.10 Other stimulant abuse, uncomplicated; F17.200 Nicotine dependence, unspecified, uncomplicated; F41.9 Anxiety disorder, unspecified; F90.9 Attention-deficit hyperactivity disorder, unspecified type; G47.00 Insomnia, unspecified; I10 Essential (primary) hypertension; Z71.6 Tobacco abuse counseling; M54.30 Sciatica, unspecified side; Z59.00 Homelessness unspecified; Z56.0 Unemployment, unspecified; Z88.8 Allergy status to other drugs, medicaments and biological substances
CPT/HCPCS: 80048; 80053; 80061; 80307; 81001; 83036; 84439; 84443; 85025; 99285; G0480; 36415-L1; 36415-TC; Z7502; Z7610